=== PATIENT | female | born 1975 | race African-American/Black ===

== ENCOUNTER 2021-08-30 14:20 | Emergency (ER) | payer SELFPAY ==
[2021-08-30 14:44] VITALS: BP 113/73; PULSE 73; TEMP 97.9; BMI 36.1
[2021-08-30] MEDS ORDERED: SODIUM CHLORIDE 1,000 ML IV ONE (14:55)
[2021-08-30] MEDS ORDERED: KETOROLAC TROMETHAMINE 30 MG/1 ML VIAL IVPUSH ONE (14:55)
[2021-08-30] MEDS ORDERED: KETOROLAC TROMETHAMINE 15 MG/ML VIAL ONE (15:15)
[2021-08-30 15:22] LABS: EPITHELIAL CELLS RARE /hpf
[2021-08-30 15:26] LABS: HCG,QUALITATIVE URINE Negative
[2021-08-30 15:37] LABS: ALBUMIN 3.9 g/dl (3.4-5.0); BILIRUBIN,TOTAL 0.5 mg/dl (0.2-1); CALCIUM 8.8 mg/dl (8.5-10); CREATININE 0.8 mg/dl (0.55-1.3); TOT PROT 7.3 g/dl (6.4-8.2)
[2021-08-30 16:38] LABS: BASO % 0.2 % (0-2.0); EOS % 1.6 % (0-4.5); HEMATOCRIT 39.9 % (32.4-45.2); HEMOGLOBIN 12.4 GM/dL (10.7-15.3); LYMPH % 31.6 % (8-40); MCH 20.9 pg (25.7-33.7); MEAN CELL VOLUME 67.3 fl (80-96); MEAN PLT VOLUME 9.4 fl (7.5-11.1); MONO % 5.4 % (3.8-10.2); NEUT % 61.2 % (42.8-82.8); PLATELET COUNT 237 10^3/uL (134-434); RBC 5.94 M/mm3 (3.60-5.2); RDW 16.1 % (11.6-15.6); WHITE BLOOD COUNT 5.7 K/mm3 (4.0-10.0)
[2021-08-30 17:19] LABS: ANISOCYTOSIS 2+; MACROCYTOSIS 0; OVALOCYTE 1+
== END 2021-08-30 18:05 | disposition home or self-care (01) ==
LOC: FER 14:20
PROC: 3E0333Z Introduction of Anti-inflammatory into Peripheral Vein, Percutaneous Approach (ICD-10-PCS; principal; 2021-08-30)
DX: N20.1 Calculus of ureter (principal)
CPT/HCPCS: 36415; 74176-TC; 80053; 81003; 81015; 84703; 85025; 99284-25